=== PATIENT | male | born 1965 | race Caucasian/White ===

== ENCOUNTER 2025-01-22 18:21 | Emergency (ER) | payer MEDICARE, SELFPAY ==
[2025-01-22 18:36] VITALS: BP 123/81
[2025-01-22 19:17] LABS: % Basophils 0.6 % (0-2); % Eosinophils 0.2 % (0-6); % Immature Granulocytes 0.4 % (0-0.5); % Lymphocytes 11.6 % (20.5-51.1); % Monocytes 7.1 % (1.7-9.3); % Neutrophils 80.1 % (42.2-75.2); Absolute Lymphocytes 0.6 10^3/uL (1.2-3.4); Absolute Monocytes 0.4 10^3/uL (0.1-0.6); Absolute Neutrophils 3.9 10^3/uL (1.4-6.5); Hematocrit 41.8 % (39.0-52.0); Hemoglobin 14.3 g/dL (13.0-18.0); Mean Corp Hgb Conc. 34.2 g/dL (33.0-37.0); Mean Corpuscular Hgb 30.3 pg (27.0-31.0); Mean Corpuscular Volume 88.6 fL (80.0-94.0); Mean Platelet Volume 10.7 fL (7.4-10.4); Nucleated Red Blood Cells % 0 % (-); Platelet Count 124 10^3/uL (130-400); Red Blood Cell Count 4.72 10^6/uL (4.70-6.10); Red Cell Dist. Width 13.8 % (11.5-14.5); White Blood Cell Count 4.9 10^3/uL (4.8-10.8)
[2025-01-22 19:26] LABS: ALT (SGPT) 33 U/L (0-50); AST (SGOT) 30 U/L (17-59); Albumin 4.2 g/dl (3.5-5.0); Alkaline Phosphatase 83 U/L (38-126); Blood Urea Nitrogen 20 mg/dl (9-20); Calcium 9.5 mg/dl (8.4-10.2); Carbon Dioxide 24 mmol/L (22-30); Chloride 103 mmol/L (98-107); Glucose 165 mg/dl (70-99); Sodium 136 mmol/L (135-145); Total Protein 6.7 g/dl (6.3-8.2); eGFR > 60.00
--- NOTE | 2025-01-22 20:30 | ED.GENMED ---
History of Present Illness
General
Chief Complaint: Skin Problem
Source: patient
Exam Limitations: none
Time Seen by Provider: 01/22/25 20:18
Nursing documentation reviewed up to this point in time: agreed with
History of Present Illness
History of Present Illness:
59-year-old male past medical history of recurrent blood clots, PE currently on Xarelto claims that he does take his medications presenting to the emergency department for worsening redness and swelling to the right foot ankle and wilkinson region.
Feels 'off'. Denies specific fevers chest pain shortness of breath.
Past History
Past History
ED Past Medical History: Psychiatric and Other (Pulmonary embolism, cellulitis, traumatic brain injury, DVT, irritable bowel syndrome)
ED Past Surgical History: Orthopedic and Other (Hernia repair, Ruptured spleen with repair)
Social History
Tobacco: Non-smoker
Alcohol: Occasional
Drug: None
Personal:
Living: with family
Employment: Employed
Family History
Family History: Diabetes
Review of Systems
Review of Systems
Allergies reviewed?: Yes
All Other Systems: ROS reviewed and negative except as documented in HPI and ROS
Phy Exam
Physical Exam
Physical Exam:
GENERAL: Alert , in no apparent distress
EYE: pupils equal and reactive
NECK: Supple, no significant adenopathy.
ENT: o/p clr, mmm.
CARDIAC: Regular rate and rhythm .
LUNGS: Clear breath sounds bilaterally, no acute respiratory distress, no wheezes/rales/rhonchi
ABDOMEN: Soft, without focal tenderness, no r/g, no cvat
NEUROLOGICAL: Alert and oriented, no focal neuro deficits
SKIN: Warm and dry, skin intact.
MUSCULOSKELETAL: Redness and swelling to the right lower extremity surrounding the right ankle right foot and the right distal lower extremity but not crossing the knee. Tender to palpation throughout the area normal distal pulses dorsalis pedis
and posterior tibialis able to move the ankle well., well perfused.
PSYCH: Normal and appropriate interaction.
Course
Orders/Labs/Results
Orders:
Orders
01/22/25 18:57
Complete Blood Count/With Diff Urgent
Comprehensive Metabolic Panel Urgent
01/22/25 20:28
Venous Doppler Lwr Ext Rt [US Periph Venous LOWER Ext RT] Urgent
Comment:
Reason For Exam: right leg swelling
01/22/25 20:29
CeFAZolin 2 GRAM [Ancef] 2 grams in 10 ml IV NOW
01/22/25 20:34
Ankle, Right 3 view CR [CR Ankle - Right Min 3 Views *] Urgent
Comment:
Reason For Exam: redness swelling
CR Foot - Right Min 3 Views Urgent
Comment:
Reason For Exam: redness swelling
01/22/25 21:51
Sulfamethox./Trimethoprim Ds [Bactrim Ds 800 mg/160 mg] 1 tablet PO NOW STA
Abnormal Lab Results
01/22/25
18:57
Plt Count 124 L 10^3/uL
(130-400)
MPV 10.7 H fL
(7.4-10.4)
Absolute Lymphs (auto) 0.6 L 10^3/uL
(1.2-3.4)
Neutrophils % 80.1 H %
(42.2-75.2)
Lymphocytes % 11.6 L %
(20.5-51.1)
Glucose 165 H mg/dl
(70-99)
01/22/25 18:57
01/22/25 18:57
Vital Signs
Initial and Last Documented VS:
Initial Vital Signs
Temp Pulse Resp BP Pulse Ox
98.6 F 96 20 123/81 100
01/22/25 18:36 01/22/25 18:36 01/22/25 18:36 01/22/25 18:36 01/22/25 18:36
Last Documented Vital Signs
Temp Pulse Resp BP Pulse Ox
98.6 F 92 20 128/72 99
01/22/25 18:36 01/22/25 22:26 01/22/25 22:26 01/22/25 22:26 01/22/25 22:26
MDM/Problems Addressed
MDM/Problems Addressed:
59-year-old male presenting to the emergency department today with concerns of redness and swelling to the right foot worsening since yesterday. There is a vague redness +2 pitting edema that he claims has been worsening over the past few days
distal to the knee on the right side. Some mild tenderness able to range well at the ankle does not seem to be consistent with an ankle joint infection. Concern for possible recurrent breakthrough DVT versus cellulitis. Given initial dose of
Ancef pending Doppler ultrasound. Care transitioned pending ultrasound.
*Critical Care Note
Total Time (30-74mins, 75-104mins- exclusive of procedures): Not Applicable
ED Attending Note
-
Portions of this chart may have been created with voice recognition software.� Occasional wrong word or��sound alike� substitutions may have occurred due to the inherent limitations of voice recognition software.
Discharge Plan
Departure
Patient Disposition: Home (Routine Discharge)
Date of Disposition: 01/22/25
Time of Disposition: 21:52
Patient with high blood pressure during this ER visit?: No
Condition: Good
Covid-19: Not Applicable
Discharge Problem:
Cellulitis of foot
Instructions: Cellulitis (Skin Infection), Adult (DC)
Prescriptions:
New
cephalexin 500 mg capsule
500 mg PO QID 7 Days Qty: 28 0RF
sulfamethoxazole-trimethoprim [Bactrim DS] 800-160 mg tablet
1 tab PO BID Qty: 14 0RF
No Action
Tamsulosin
0.4 mg PO DAILY
rivaroxaban [Xarelto] 15 MG tablet
20 mg PO DAILY
Olanzapine 10 MG Tablet
10 mg PO DAILY
doxycycline hyclate 100 MG capsule
100 mg PO Q12 Qty: 60 0RF
mupirocin 1 APPLIC ointment
1 applic topical DAILY Qty: 1 0RF
oxycodone 5 MG tablet
5 mg PO Q6 PRN (Reason: pain) Qty: 6 0RF
Referrals:
[facility] - Call in 1-3 days for appt
NONE,* [Family Provider] -
Activity Restrictions/Additional Instructions:
Return to the emergency department immediately for fever/chills, increasing pain/redness/swelling to your foot, or for any further concerns.
Interventions
Interventions:
*Risk Screen - Suicide Last Done: 01/22/25 18:36
*General Assessment Last Done: 01/22/25 22:32
*Neglect/Abuse Screening Last Done: 01/22/25 18:36
ED- Fall Risk Assessment Last Done: 01/22/25 22:32
*Nursing Disposition Last Done: 01/22/25 22:33
ED-Skin Assessment Last Done: 01/22/25 22:32
Discharge Date and Time
Discharge Date/Time: 01/22/25 22:35
Print Language: [id number]
[2025-01-22] MEDS: ANCEF 10 IV (21:39)
[2025-01-22] MEDS: BACTRIM DS 800 MG/160 MG 1 TABLET PO (22:13)
[2025-01-22 22:26] VITALS: BP 128/72
== END 2025-01-22 22:35 | disposition home or self-care (01) ==
LOC: EMR 18:21
PROVIDERS: EMERGENCY PHYSICIAN Emergency Medicine
DX: M79.89 Other specified soft tissue disorders (principal); Z86.718 Personal history of other venous thrombosis and embolism; Z86.711 Personal history of pulmonary embolism; Z79.01 Long term (current) use of anticoagulants
CPT/HCPCS: 99284; 96374; 73610; 73630; 80053; 85025; 93971